=== PATIENT | female | born 2000 | race Caucasian/White ===

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

== ENCOUNTER 2021-04-16 12:46 | Emergency (ER) | payer OTHER ==
[~2021-04-16] VITALS: Ht 165.1 cm; Wt 49.0 kg
[2021-04-16] MEDS ORDERED: NEXPLANON68 MG SUBQ (13:02)
[2021-04-16 14:12] VITALS: BP 134/81
[2021-04-16] MEDS ORDERED: CEPHALEXIN500 MG PO (14:21)
== END 2021-04-16 14:33 | disposition home or self-care (01) ==
LOC: M.ERS 12:46
DX: S91.331A Puncture wound without foreign body, right foot, initial encounter (principal); Z98.890 Other specified postprocedural states; W25.XXXA Contact with sharp glass, initial encounter; Y93.89 Activity, other specified; Y92.89 Other specified places as the place of occurrence of the external cause; Y99.8 Other external cause status

== ENCOUNTER 2021-06-19 01:30 | Emergency (ER) | payer OTHER ==
[~2021-06-19] VITALS: Ht 165.1 cm; Wt 49.9 kg
[~2021-06-19 01:30] MED LIST changes: +CEPHALEXIN500 MG PO; +NEXPLANON68 MG SUBQ
[2021-06-19 01:42] VITALS: BP 140/98
[2021-06-19 01:51] LABS: URINE BILIRUBIN NEGATIVE (Negative); URINE BLOOD NEGATIVE (Negative); URINE CLARITY CLEAR; URINE COLOR YELLOW; URINE GLUCOSE-RANDOM NEGATIVE (Negative); URINE KETONES NEGATIVE (Negative); URINE LEUKOCYTES-REFLEX NEGATIVE (Negative); URINE NITRITE-REFLEX NEGATIVE (Negative); URINE PROTEIN NEGATIVE (Negative); URINE UROBILINOGEN 0.2 E.U./dl (0.2-1.0)
[2021-06-19 01:58] LABS: AMP/METHAMP Negative (Negative); BARBITURATES Negative (Negative); BENZODIAZEPINES Negative (Negative); COCAINE Negative (Negative); METHADONE Negative (Negative); OPIATES Negative (Negative); PCP Negative (Negative); THC Negative (Negative)
== END 2021-06-19 02:10 | disposition home or self-care (01) ==
LOC: M.ERS 01:30
PROVIDERS: Emergency Medicine
DX: R51.9 Headache, unspecified (principal); R42 Dizziness and giddiness; Z98.890 Other specified postprocedural states